=== PATIENT | female | born 1955 | race Caucasian/White ===

== ENCOUNTER 2025-03-11 08:48 | Outpatient (CLI) | payer MEDICARE, SELFPAY | END 2025-03-11 08:49 | disposition home or self-care (01) | LOC: NFLDREF 03-16 09:51 | PROVIDERS: PCP Physician Assistant Medical; Referring Provider Physician Assistant Medical; Visit Provider Physician Assistant Surgical | DX: N30.01 Acute cystitis with hematuria (principal) | CPT/HCPCS: 87086 ==